=== PATIENT | female | born 1945 | race Two or more races ===

== ENCOUNTER 2019-06-16 07:16 | Outpatient (CLI) | payer OTHER | END 2019-06-16 10:25 | disposition home or self-care (01) | LOC: NUCLEAR 07:16 | DX: I11.9 Hypertensive heart disease without heart failure (principal); E07.89 Other specified disorders of thyroid; E66.3 Overweight; R06.09 Other forms of dyspnea | CPT/HCPCS: 78452; 93017; A9500; J0153 ==